=== PATIENT | female | born 1940 | race Caucasian/White ===

== ENCOUNTER 2023-11-19 07:00 | Outpatient (CLI) | payer MEDICARE ==
--- NOTE | 2023-11-19 12:22 | XRAY Report ---
PROCEDURE: Chest 2V INDICATIONS: FATIGUE/COUGH TECHNIQUE: 2 views of the chest were acquired. COMPARISON: None. FINDINGS: Surgical changes and devices: None. Lungs and pleura: Hyperinflation with upper lobe predominant emphysema. No pleural effusions or pneu mothorax. Lungs are clear. Mediastinum: Aortic arch calcifications. Mediastinal contours appear normal. Heart size is normal. Bones and chest wall: No suspicious bony lesions. Overlying soft tissues appear unremarkable. IMPRESSION: No acute cardiothoracic process. Reviewed by: Anthony Ramos MD on 11/19/2023 12:20 PM PDT Approved by: Anthony Ramos MD on 11/19/2023 12:20 PM PDT Station ID: [id number]
== END 2023-11-19 23:59 | disposition home or self-care (01) ==
LOC: DI.S 07:00
PROVIDERS: ATTEND Registered Nurse
DX: R53.83 Other fatigue (principal); R05.1 Acute cough; U07.1 COVID-19